=== PATIENT | female | born 1985 | race Caucasian/White ===

== ENCOUNTER 2016-06-23 13:02 | Emergency (ER) | payer MEDICAID ==
[2016-06-23] MEDS ORDERED: DEXAMETHASONE 10 MG/ML VIAL PO STA (13:47)
[2016-06-23] MEDS ORDERED: DEXAMETHASONE 10 MG/ML VIAL ONE (13:49)
[2016-06-23] MEDS ORDERED: CHERRY SYRUP 10 ML UDC PO ONE (13:50)
[2016-06-23] MEDS ORDERED: HYDROGEN PEROXIDE 3% 473 ML BOTTLE TOP ONE (14:04)
== END 2016-06-23 14:20 | disposition home or self-care (01) ==
DX: J02.9 Acute pharyngitis, unspecified (principal); H61.23 Impacted cerumen, bilateral; E86.0 Dehydration; F17.200 Nicotine dependence, unspecified, uncomplicated
CPT/HCPCS: 87070; 87430; 99283; A9270

== ENCOUNTER 2017-02-12 15:35 | Outpatient (CLI) | payer MEDICAID ==
--- NOTE | 2017-02-13 00:12 | XRAY Report ---
EXAM: THORACIC SPINE RADIOGRAPHY EXAM DATE: 02/12/2017 03:52 PM. CLINICAL HISTORY: BACK PAIN. COMPARISON: None. TECHNIQUE: 2 views. FINDINGS: Alignment: Minimal rightward scoliosis in the thoracic spine measuring 6 degrees, apex at T8 Bones: Moderate T7 compression fracture deformity, age indeterminate, could represent an acute compre ssion fracture in the appropriate clinical setting. Mild T6 and T8 anterior compression deformities, appear more chronic, however acute compression fractures are not excluded. No comparison. Disks: Moderate disk height loss at T7-T8. Soft Tissues: No acute findings. IMPRESSION: 1. Moderate T7 compression fracture deformity, age indeterminate, could represent an acute compressio n fracture in the appropriate clinical setting. Mild T6 and T8 anterior compression deformities, appe ar more chronic, however acute compression fractures are not excluded. No comparison. 2. Minimal rightward scoliosis in the thoracic spine. 3. Moderate disk height loss at T7-T8. [facility] Referring Provider Line: [phone] SITE ID: [id number]
--- NOTE | 2017-02-13 00:15 | XRAY Report ---
EXAM: LUMBOSACRAL SPINE RADIOGRAPHY EXAM DATE: 02/12/2017 03:59 PM. CLINICAL HISTORY: BACK PAIN. COMPARISONS: None. TECHNIQUE: 3 views. FINDINGS: Alignment: Minimal levoscoliosis at the thoracolumbar spine apex at L1, angle of 4 degrees. Bones: 4 [id number] lumbar vertebral bodies are present. No fractures or bone lesions. Disks: Normal. Disk heights are maintained. Facets: No degenerative changes. Sacroiliac Joints: Unremarkable. Soft Tissues: Normal. The visualized bowel gas pattern is normal. IMPRESSION: 1. Minimal levoscoliosis at the thoracolumbar spine apex at L1, angle of 4 degrees. 2. No acute findings. 3. Four lumbar type vertebra. [facility] Referring Provider Line: [phone] SITE ID: [id number]
== END 2017-02-12 15:36 | disposition home or self-care (01) ==
LOC: DI.N 15:35
PROVIDERS: ATTEND Family Medicine
DX: M48.54XA Collapsed vertebra, not elsewhere classified, thoracic region, initial encounter for fracture (principal); M41.84 Other forms of scoliosis, thoracic region; M41.85 Other forms of scoliosis, thoracolumbar region; F31.60 Bipolar disorder, current episode mixed, unspecified
CPT/HCPCS: 36415; 72070; 72100; 80053; 84443; 85025

== ENCOUNTER 2017-02-12 15:36 | Outpatient (CLI) | payer MEDICAID ==
[2017-02-12 19:01] LABS: BASOPHILS % (AUTO) 0.5 %; EOSINOPHILS # (AUTO) 0.1 10^3/uL (0.0-0.7); EOSINOPHILS % (AUTO) 0.8 %; HCT - HEMATOCRIT 37.8 % (37.0-47.0); HGB - HEMOGLOBIN 12.5 g/dL (12.0-16.0); LYMPHOCYTES % (AUTO) 22.9 %; MEAN CORPUSCULAR HEMOGLOBIN 31.7 pg (27.0-31.0); MEAN CORPUSCULAR HGB CONC 33.1 g/dL (32.0-36.0); MEAN CORPUSCULAR VOLUME 95.9 fL (81.0-99.0); MEAN PLATELET VOLUME 8.8 fL (7.9-10.8); MONOCYTES # (AUTO) 0.6 10^3/uL (0.0-1.0); MONOCYTES % (AUTO) 6.3 %; NEUTROPHILS # (AUTO) 6.2 10^3/uL (1.5-6.6); NEUTROPHILS % (AUTO) 69.5 %; NUCLEATED RED BLOOD CELLS AUTO 0.1 /100WBC; RED BLOOD COUNT 3.94 10^6/uL (4.20-5.40); UNCORRECTED WHITE BLOOD COUNT 8.9 x10^3/uL; WHITE BLOOD COUNT 8.9 x10^3/uL (4.8-10.8)
[2017-02-12 19:29] LABS: ALBUMIN/GLOBULIN RATIO 1.4 (1.0-2.2); BILIRUBIN,TOTAL 0.6 mg/dL (0.2-1.0); BUN - BLOOD UREA NITROGEN 13 mg/dL (6-20); CALCIUM 9.4 mg/dL (8.5-10.3); CARBON DIOXIDE - CO2 23 mmol/L (21-32); CHLORIDE 106 mmol/L (101-111); CREATININE 0.5 mg/dL (0.4-1.0); GFR - MDRD 146 (>89); GLUCOSE 87 mg/dL (70-100); POTASSIUM 3.8 mmol/L (3.5-5.0); SODIUM 136 mmol/L (135-145); TOTAL PROTEIN 7.5 g/dL (6.7-8.2)
== END 2017-02-12 15:37 | disposition home or self-care (01) ==
LOC: LAB.N 15:36
PROVIDERS: ATTEND Family Medicine
DX: F31.60 Bipolar disorder, current episode mixed, unspecified (principal)
CPT/HCPCS: 36415; 80053; 84443; 85025

== ENCOUNTER 2017-03-09 11:15 | Outpatient (CLI) | payer MEDICAID | END 2017-03-09 11:30 | disposition home or self-care (01) | LOC: RT.N 11:15 | PROVIDERS: ATTEND Family Medicine | DX: R00.0 Tachycardia, unspecified (principal) | CPT/HCPCS: 93005 ==

== ENCOUNTER 2017-03-23 14:29 | Outpatient (CLI) | payer MEDICAID ==
--- NOTE | 2017-03-24 09:52 | MRI Report ---
EXAM: MRI THORACIC SPINE WITHOUT CONTRAST EXAM DATE: 03/23/2017 03:38 PM. CLINICAL HISTORY: Wedge compression of T7-T8 vertebra. COMPARISONS: Thoracic spine radiographs 02/12/2017. TECHNIQUE: Multiplanar, multisequence T1-weighted and fluid-sensitive sequences of the thoracic spine from C7 to L1 without contrast. Other: None. FINDINGS: There is some motion artifact on the study. Accounting for motion, no suspicious marrow replacement is identified in the thoracic spinal cord. Mild kyphosis is seen centered over T7. There is anterior wedging involving the T7 and T8 vertebral b odies, greatest at T7. There is some loss of vertebral body height at T9 along the anterior and super ior endplate. Schmorl's node formation is seen at T6, T7, T8, T9, and T11. There is no edema associat ed with these Schmorl's nodes or with the areas of anterior wedging at T7 and T8. Minimal posterior disk protrusions are present at T6-T7, T7-T8, and T8-T9. Posterior bulging of the a nnulus is seen at T5-T6 and T4-T5. No central canal or foraminal stenosis is present in the thoracic spine. IMPRESSION: 1. Mild kyphosis is present centered over T7. 2. Anterior wedging is seen at T7 and to a much lesser extent at T8. There is no associated marrow ed warren consistent with this being chronic. 3. Minimal posterior disk protrusions are seen at T6-T7 and T7-T8. 4. No central canal or foraminal stenosis. 5. Degenerative Schmorl's node formation in the mid and lower thoracic spine raises the possibility o f Scheuermann's disease. [facility] Referring Provider Line: [phone] SITE ID: [id number]
== END 2017-03-23 14:30 | disposition home or self-care (01) ==
LOC: DI 14:29
PROVIDERS: ATTEND Nurse Practitioner Gerontology
DX: S22.060A Wedge compression fracture of T7-T8 vertebra, initial encounter for closed fracture (principal); M51.24 Other intervertebral disc displacement, thoracic region; M51.44 Schmorl's nodes, thoracic region; M40.294 Other kyphosis, thoracic region
CPT/HCPCS: 72146

== ENCOUNTER 2018-06-16 16:00 | Outpatient (CLI) | payer MEDICAID | END 2018-06-16 16:01 | disposition critical access hospital (66) | LOC: EMS 16:00 | PROVIDERS: ATTEND Surgery | DX: S01.91XA Laceration without foreign body of unspecified part of head, initial encounter (principal); R41.82 Altered mental status, unspecified; X58.XXXA Exposure to other specified factors, initial encounter | CPT/HCPCS: A0425; A0429; A0999 ==

== ENCOUNTER 2018-06-16 16:31 | Emergency (ER) | payer MEDICAID ==
[2018-06-16] MEDS ORDERED: BUFFERED LIDOCAINE 10 ML SYRINGE SUBQ STA (16:38)
[2018-06-16 16:43] VITALS: BP 128/96
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
== END 2018-06-16 17:20 | disposition home or self-care (01) ==
LOC: EDUNIT# → ED 16:31
DX: S01.81XA Laceration without foreign body of other part of head, initial encounter (principal); S01.01XA Laceration without foreign body of scalp, initial encounter; W22.8XXA Striking against or struck by other objects, initial encounter; Y92.009 Unspecified place in unspecified non-institutional (private) residence as the place of occurrence of the external cause
CPT/HCPCS: 12011; 99282; 99283

== ENCOUNTER 2018-06-17 12:59 | Emergency (ER) | payer MEDICAID ==
[2018-06-17 13:13] VITALS: BP 139/100
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
[2018-06-17] MEDS ORDERED: DEXAMETHASONE 10 MG/ML VIAL PO STA (14:25)
[2018-06-17] MEDS ORDERED: MECLIZINE 12.5 MG TABLET PO STA (14:25)
[2018-06-17] MEDS ORDERED: ONDANSETRON ODT 4 MG TABLET TL STA (14:25)
[2018-06-17] MEDS ORDERED: CHERRY SYRUP 10 ML UDC PO ONE (14:36)
--- NOTE | 2018-06-17 14:44 | CT Report ---
Reason: head injury yesterday, dizzy today Procedure Date: 06/17/2018 Accession Number: [id number] / [id number] Procedure: CT - HEAD WO CPT Code: FULL RESULT: EXAM: CT HEAD EXAM DATE: 06/17/2018 02:33 PM. CLINICAL HISTORY: Head injury yesterday, dizzy today. COMPARISON: None available. TECHNIQUE: Multiaxial CT images were obtained from the foramen magnum to the vertex. Reformats: Sagittal and coronal. IV contrast: None. In accordance with CT protocol optimization, one or more of the following dose reduction techniques were utilized for this exam: automated exposure control, adjustment of mA and/or KV based on patient size, or use of iterative reconstructive technique. FINDINGS: Parenchyma: No acute intraparenchymal hemorrhage. No evidence of mass or midline shift. Cochran-white differentiation is distinct. Extraaxial Spaces: No subdural or epidural collections identified. Ventricles: Normal in size and position. Sinuses and Orbits: Imaged paranasal sinuses, orbits, and mastoids show no significant abnormality. Bones: No evidence of fracture or calvarial defect. Other: Possible small right frontal contusion (image 13 of series 3). IMPRESSION: No acute intracranial findings. [facility]
== END 2018-06-17 15:43 | disposition home or self-care (01) ==
LOC: ED 12:59
DX: S06.0X0A Concussion without loss of consciousness, initial encounter (principal); W20.8XXA Other cause of strike by thrown, projected or falling object, initial encounter; F17.200 Nicotine dependence, unspecified, uncomplicated
CPT/HCPCS: 70450; 99283; A9270; Q0162

== ENCOUNTER 2020-05-07 00:26 | Emergency (ER) | payer MEDICAID ==
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
[2020-05-07] MEDS ORDERED: oxyCODONE 5 MG TABLET PO STA (01:11)
[2020-05-07 03:28] VITALS: BP 127/91
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
== END 2020-05-07 03:53 | disposition home or self-care (01) ==
LOC: ED 00:26
DX: S51.812A Laceration without foreign body of left forearm, initial encounter (principal); S51.811A Laceration without foreign body of right forearm, initial encounter; S54.01XA Injury of ulnar nerve at forearm level, right arm, initial encounter; W25.XXXA Contact with sharp glass, initial encounter; Y93.89 Activity, other specified; Y92.008 Other place in unspecified non-institutional (private) residence as the place of occurrence of the external cause; F17.200 Nicotine dependence, unspecified, uncomplicated
CPT/HCPCS: 12002; 73090; 73130; 99283; 99284; A9270